=== PATIENT | male | born 1955 | race Caucasian/White ===

== ENCOUNTER → 2018-05-01 07:54 | Outpatient (CLI) | payer OTHER, SELFPAY ==
--- NOTE | 2018-05-01 09:25 | PM.TREADMILL ---
Cardiac Stress Test Report Referral & Results Date Patient Seen: 05/01/18 Requesting provider: Reynaldo Spence Indication: Short of breath, hypertension, dizziness Rest ECG: Unremarkable Procedure Note: Today following both written and verbal informed consent, the patient was exercised according to a standard [place] protocol. The patient exercised for a total of 6 min 25 sec achieving a maximum heart rate of 165. Patient's maximum systolic blood pressure was 186. This was an estimated 7.0 MET's. There are no ST-T segment changes identified Patient frequent PVCs including runs of ventricular bigeminy Rare PACs More frequent apparently conducted sinus beats were also present Functional aerobic impairment rated 20% on the sedentary scale Normal heart rate and blood pressure response Impression: No evidence of ischemia Dysrhythmia as above, suggest echocardiography given the ventricular dysrhythmia component Limited exercise capacity as above Please note: Actual ECG tracings can be found in the PACS system.
== END ==
PROVIDERS: Visit Provider Family Medicine
DX: I49.3 Ventricular premature depolarization (principal); I25.10 Atherosclerotic heart disease of native coronary artery without angina pectoris; R06.02 Shortness of breath; R42 Dizziness and giddiness
CPT/HCPCS: 93016; 93017; 93018

== ENCOUNTER 2022-04-20 17:03 | Emergency (ER) | payer OTHER, SELFPAY ==
[2022-04-20 17:30] VITALS: BP 162/93; PULSE 76; RESP 16; TEMP 36.7; O2SAT 99; BMI 44.0
--- NOTE | 2022-04-20 22:42 | ED.SKABFB ---
HPI - Skin/Abscess/Foreign Bdy General Chief complaint: Skin/Abscess/Foreign Body Stated complaint: Poss spider bite, Rt calf Time Seen by Provider: 04/20/22 22:37 Source: patient Mode of arrival: Ambulatory Limitations: no limitations History of Present Illness HPI narrative: Alert phi 66-year-old male history of hypertension pulmonary embolism on Eliquis presenting today with right leg pain and redness. He says he was driving along with he felt something on his leg he thought it was staying but never saw above what it is like a couple of times. He has noted some increasing redness over the last 2 days. No fever or chills. No drainage. Related Data Home Medications Medication Instructions Recorded Confirmed hydrochlorothiazide 12.5 mg capsule ##0 03/07/12 metoprolol tartrate 25 mg tablet 25 mg PO BID ##0 03/07/12 ibuprofen 200 mg tablet ##0 08/16/12 potassium chloride 8 mEq ##0 08/16/12 tablet,extended release (Klor-Con) Previous Rx's Medication Instructions Recorded doxycycline hyclate 100 mg capsule 100 mg PO BID #14 caps 04/20/22 Allergies Allergy/AdvReac Type Severity Reaction Status Date / Time No Known Drug Allergies Allergy Verified 04/20/22 17:37 Review of Systems Review of Systems Narrative: GENERAL: Denies chills,fever HEENT: Denies throat pain RESPIRATORY: Denies dyspnea, cough, wheezing CARDIOVASCULAR: Denies chest pain, palpitations GASTROINTESTINAL: Denies nausea, vomiting MUSCULOSKELETAL: Denies extremity pain, injury SKIN: See HPI NEUROLOGIC: Denies weakness, dizziness, headache, numbness 8 point review of systems is negative except for those stated above and HPI Patient History Social History Smoking Status: Never smoker Smoking Status: Never smoker alcohol intake frequency: 0-2 drinks per day Substance Use Type: does not use Exam Initial Vital Signs Initial Vital Signs: Vital Signs Temperature 98.0 F 04/20/22 17:30 Pulse Rate 76 04/20/22 17:30 Respiratory Rate 16 04/20/22 17:30 Blood Pressure 162/93 H 04/20/22 17:30 Pulse Oximetry 99 04/20/22 17:30 Oxygen Delivery Method 04/20/22 17:30 GENERAL: Alert phi 66-year-old CARDIOVASCULAR: peripheral pulses in tact, cap refill <2 sec RESPIRATORY: No respiratory distress, speaks in full sentences without difficulty EXTREMITIES: Normal range of motion, no clubbing or edema. Neurovascularly intact NEUROLOGICAL: Cranial nerves II through XII grossly intact. Normal gait and speech. SKIN: Right leg calf 5 cm of erythema 3 small holes. No fluctuation no swelling no significant induration minimally tender to touch. Left lower extremity not erythematous but chronic venous stasis noted per orally Course Orders Ordered: Discontinued Medications Doxycycline Hyclate (Doxycycline Hyclate 100 Mg Tablet) 100 mg PO NOW ONE Stop: 04/20/22 22:42 Last Admin: 04/20/22 22:54 Dose: 100 mg Documented By: CTS Vital Signs Vital signs: Vital Signs - 8 hr 04/20/22 17:30 Temperature 98.0 F Pulse Rate 76 Respiratory Rate 16 Blood Pressure 162/93 H Pulse Oximetry 99 Oxygen Delivery Method Room Air MDM - Skin/Abscess/Foreign Bdy MDM Narrative Medical decision making narrative: Patient overall appears well. Not septic. Small area of cellulitis. Unclear if a spider actually bit him do not suspect IVDA use or injection. Will start on doxycycline Discharge Plan Departure Patient Disposition: Home Clinical Impression: Cellulitis Instructions: DI for Cellulitis -- Adult Activity Restrictions/Additional Instructions: *You have been diagnosed with cellulitis *What to do: Please monitor closely for worsening redness. Give antibiotics at least 2 to3 days to work *Continue to take medications as directed Doxycycline 100 mg twice a day for 7 days *Follow up with your primary care provider in 2-3 days or call [phone] *Return to ER if you should have increasing redness pain swelling fever or any new, worsening or concerning symptoms Prescriptions: New doxycycline hyclate 100 mg capsule 100 mg PO BID Qty: 14 0RF No Action hydrochlorothiazide 12.5 MG capsule Qty: 0 metoprolol tartrate 25 MG tablet 25 mg PO BID Qty: 0 potassium chloride [Klor-Con 8] 8 MEQ tablet extended release Qty: 0 ibuprofen 200 MG tablet Qty: 0 Visit Report Forms: Patient Portal/API
[2022-04-20] MEDS: DOXYCYCLINE HYCLATE 100 MG TABLET PO (22:54)
== END 2022-04-20 22:54 | disposition home or self-care (01) ==
PROVIDERS: Emergency Provider Emergency Medicine
DX: L03.115 Cellulitis of right lower limb (principal)
CPT/HCPCS: 99283

== ENCOUNTER 2022-10-17 12:39 | Day surgery (SDC) | payer OTHER, SELFPAY ==
[2022-10-17] MEDS: LACTATED RINGERS 1,000 ML 100 ML IV (13:45)
[2022-10-17 13:49] VITALS: BP 153/75; PULSE 73; RESP 16; TEMP 37.1; O2SAT 95; BMI 43.4
--- NOTE | 2022-10-17 14:03 | PM.HP.1 ---
History of Present Illness History of Present Illness Date Patient Seen: 10/17/22 Time Patient Seen: 14:04 Chief complaint: SDC Narrative: Demario is a 66-year-old man who has never had a colonoscopy. No family history of colon cancer that he knows of. [facility] Social History household members: spouse Smoking Status: Never smoker Meds Home Medications and Allergies Home Medications Medication Instructions Recorded Confirmed Type hydrochlorothiazide 12.5 mg capsule 12.5 mg PO DAILY ##0 03/07/12 10/17/22 History metoprolol tartrate 25 mg tablet 25 mg PO BID ##0 03/07/12 History ibuprofen 200 mg tablet ##0 08/16/12 History potassium chloride 8 mEq ##0 08/16/12 History tablet,extended release (Klor-Con) doxycycline hyclate 100 mg capsule 100 mg PO BID #14 caps 04/20/22 10/17/22 Rx losartan 100 mg tablet 100 mg PO DAILY 10/17/22 10/17/22 History Allergies Allergy/AdvReac Type Severity Reaction Status Date / Time No Known Drug Allergies Allergy Verified 10/17/22 13:31 Exam Vital Signs (past 8 hours): - 10/17/22 13:49 Temperature 98.7 F Pulse Rate 73 Respiratory Rate 16 Blood Pressure 153/75 H Pulse Oximetry 95 Oxygen Delivery Method Blow By Oxygen Delivery Method Blow By Const Nutritional Appearance: obese Assessment & Plan Assessment and plan (1) Colon cancer screening: Status: Acute Plan We reviewed the risks and benefits of colonoscopy for colon cancer screening and he would like to proceed.
--- NOTE | 2022-10-17 15:51 | PM.OP.COLON ---
Operative Date/Time/Diagnoses Date of procedure: 10/17/22 Time of procedure: 15:51 Pre-op diagnosis: Colon cancer screening Post-op diagnosis: same Procedure & Clinicians Study performed: Colonoscopy Same procedure as scheduled: Yes Surgeon: Keshawn Donald Procedure Notes Procedure in detail: Surgeon: Keshawn Donald MD Anesthesia: Maxim Howard CRNA Procedure: The patient was brought to the endoscopy suite, placed in left lateral decubitus position. The patient was connected to monitoring devices. A time-out was performed. Sedation was administered. Once the patient was adequately sedated, a digital rectal exam was performed and was normal. The scope was then inserted and advanced to the ascending colon. The cecum could not be reached. We tried repositioning the patient's supine, the scope stiffener and abdominal compression however no combination maneuvers would allow to enter the cecum. Scope was slowly withdrawn and no mucosal abnormalities were seen. The scope was retroflexed in the rectum. No abnormalities were seen. The scope was straightened and removed. The patient was awakened and brought to recovery. Scope withdrawal time: Not applicable Sedation time: 31 minutes EBL: 0 Findings: Long colon Post-procedure Disposition: PACU
[2022-10-17 15:56] VITALS: BP 130/78; PULSE 70; RESP 16; TEMP 36.7; O2SAT 95
[2022-10-17 16:01] VITALS: BP 114/70; PULSE 70; RESP 16; O2SAT 95
[2022-10-17 16:06] VITALS: BP 118/72; PULSE 92; RESP 16; O2SAT 96
[2022-10-17 16:11] VITALS: BP 120/82; PULSE 67; RESP 18; O2SAT 96
[2022-10-17 16:13] VITALS: BP 142/88; PULSE 62; RESP 16; O2SAT 96
== END 2022-10-17 16:47 | disposition home or self-care (01) ==
PROVIDERS: PCP Nurse Practitioner Family; Referring Provider Surgery; Visit Provider Surgery
PROC: 0DJD8ZZ Inspection of Lower Intestinal Tract, Via Natural or Artificial Opening Endoscopic (ICD-10-PCS; CPT 45378; principal; 2022-10-17 14:00)
DX: Z12.11 Encounter for screening for malignant neoplasm of colon (principal)
CPT/HCPCS: 45378; J2704

== ENCOUNTER → 2022-12-20 08:12 | Outpatient (CLI) | payer OTHER, SELFPAY ==
--- NOTE | 2022-12-20 08:13 | DI.RAD.S_ITS ---
PROCEDURE: FL BARIUM ENEMA INDICATIONS: incomplete colonoscopy COMPARISON: None. FINDINGS: KUB: Preprocedural environmental compliance inspector film demonstrates a normal bowel gas pattern. No suspicious abdominal calcifications. Visualized solid organ contours appear normal in size. No suspicious bony lesions. Postsurgical changes are seen in right femoral neck. Colon: Mildly redundant sigmoid colon is seen. There is adequate opacification of the entire colon. No strictures or extrinsic mass effects are identified. No colonic fistulae or perforations. Colon caliber appears normal. IMPRESSION: Mildly redundant sigmoid colon. Otherwise unremarkable double-contrast barium enema study. Dictated by: Vahid Ogden M.D. on 12/20/2022 at 15:25 Approved by: Vahid Ogden M.D. on 12/20/2022 at 15:26
== END ==
PROVIDERS: PCP Nurse Practitioner Family; Referring Provider Surgery; Visit Provider Surgery
DX: Z12.11 Encounter for screening for malignant neoplasm of colon (principal); Q43.8 Other specified congenital malformations of intestine
CPT/HCPCS: 74270

== ENCOUNTER → 2023-01-14 14:08 | Outpatient (CLI) | payer OTHER, SELFPAY ==
--- NOTE | 2023-01-22 20:33 | DI.NM.S_ITS ---
DATE OF SERVICE: 01/14/2023 PROCEDURE: Pharmacological perfusion study report. Date of resting study done on January 14, 2023 and stress part done on January 22, 2023. RADIOPHARMACEUTICAL: 25.1 millicurie technetium-99m Myoview IV was injected at stress and 25.6 millicurie technetium-99m Myoview IV was injected at rest. Two days protocol. CARDIAC STRESS: Patient underwent IV Lexiscan perfusion study under the supervision of an attending staff. The patient received IV Lexiscan, as per standard protocol. The patient remained hemodynamically stable. Resting blood pressure 140/98. Resting rhythm sinus. During stress, no convincing ischemic changes seen. No new significant arrhythmias seen. No anginal symptoms. RAW DATA: There is increased subdiaphragmatic activity. Soft shadow seen around the heart. The patient's weight is 312 pounds. GATED STUDY: Stress LV ejection fraction 68% without any obvious wall motion abnormalities. Resting end-diastolic volume 105 mL. TID ratio 1.33. However, it is a pharmacological perfusion study. Visually, I do not see any significant transient ischemic dilatation. Lung/heart ratio 0.41, which is within normal limits. MYOCARDIAL PERFUSION SCAN: Stress supine, resting supine and stress prone images were compared to each other. There is a small to moderate size, moderate to severely decreased perfusion of inferior wall rakel patchy distribution, without any significant reversibility. There is also a predominantly fixed, small size, mildly decreased perfusion of mid anterior wall sparing distal anterior wall and anteroapex. Overall, no obvious reversible ischemia. CONCLUSION: There is a predominantly fixed, moderate-size patchy inferior wall defect, as well as a small size mid anterior wall defect without any significant reversible ischemia. The patient's weight is 312 pounds. There is increased subdiaphragmatic activity, as well as soft shadow seen around the heart. On gated study, preserved left ventricular function without any significant wall motion abnormalities. Abnormal perfusion defect could be due to persistent tissue attenuation artifact because of the body habitus, as described, however, one cannot rule out old inferior wall myocardial infarction and mid anterior wall myocardial infarction. Correlate clinically. In view of preserved left ventricular function without any significant reversible ischemia, overall, it is not a high risk study. Demario Shelton - JUAREZ/jami/aiden doc#: [id number]/job#: [id number] dd: 01/22/2023 16:34:00 dt: 01/22/2023 20:17:00 DICTATING MD/COPIES TO: Juancarlos Robison MD COPIES MNE: BRIANA;
== END ==
PROVIDERS: PCP Nurse Practitioner Family; Referring Provider Nurse Practitioner Family; Visit Provider Nurse Practitioner Family
DX: R06.02 Shortness of breath (principal); Z82.49 Family history of ischemic heart disease and other diseases of the circulatory system
CPT/HCPCS: 78452; 93017; A9502; J2785

== ENCOUNTER 2023-02-04 09:36 | Day surgery (SDC) | payer OTHER, SELFPAY ==
[2022-12-24 08:48] VITALS: BMI 44.4
[2023-02-04] MEDS: LACTATED RINGERS 1,000 ML 42 ML IV (09:47)
[2023-02-04 10:00] VITALS: BP 142/88; PULSE 56; RESP 16; TEMP 36.3; O2SAT 100; BMI 44.4
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
[2023-02-04] MEDS: CEFAZOLIN 2 GM/100 ML PREMIX 100 ML IV (10:33)
--- NOTE | 2023-02-04 10:44 | SUR.OPER ---
Supine on padded OR bed, head on pillow, arms secured on padded arm boards at <90 degrees abduction, legs uncrossed, safety belt at thigh, tape over blanket over lower legs.
[2023-02-04] MEDS: BUPIVACAINE 0.5% (PF) 30 ML, EPINEPHrine 0.15 MG INJ (10:48)
[2023-02-04] MEDS: CEFAZOLIN VIAL 1 GM in SODIUM CHLORIDE 0.9% 100 ML IV (10:50)
--- NOTE | 2023-02-04 12:02 | PM.OP.1 ---
Operative Date/Time/Diagnoses Date of procedure: 02/04/23 Time of procedure: 12:02 Pre-op diagnosis: Right inguinal hernia Post-op diagnosis: same Procedure & Clinicians Procedure: Open right inguinal hernia repair with mesh Same procedure as scheduled: Yes Surgeon: Keshawn Donald Patent Attorney: Murray Santana Anesthesia Type: General Operative Notes Procedure in detail: Preoperative antibiotic was administered. The patient was brought to the operating room and placed on the table in supine position general anesthesia was induced. The right groin was prepped and draped in the normal fashion and a time-out was performed. Roughly 10 mL of local anesthetic were injected into the skin and subcutaneous adipose tissue over the right groin. A 9 cm incision was made over the right inguinal canal. Dissection was carried down through the subcutaneous adipose tissue. The patient had extensive subcutaneous adipose tissue. We exposed the external oblique aponeurosis in the direction of the fibers. Additional local was injected deep to the aponeurosis. A 15 blade scalpel was used to bridget the external oblique aponeurosis. Metzenbaum scissors were used to carefully open the aponeurosis in the direction of the fibers taking care not to injure the underlying ilioinguinal nerve. We completely exposed the inguinal canal. The cord was dissected free from the inguinal ligament and floor of the inguinal canal and the external oblique aponeurosis was dissected off of the internal oblique taking care not to injure the hypogastric nerve. We encircled the cord with a Fredy drain for retraction. There was a fatty indirect hernia. We amputated and discarded a fatty cord lipoma there were to be able to reduce the remaining fatty tissue below the internal ring. We then placed a polypropylene mesh against the floor of the inguinal canal. The mesh was secured with multiple interrupted 3-0 Prolene sutures to the pubic tubercle and shelving edge of the inguinal ligament as well as to the conjoint tendon medially. We overlapped the tails to recreate an internal ring and secured the medial tail to the inguinal ligament with additional sutures. We injected some more local into the fatty tissue in the inguinal canal and cord. Finally, we removed the Fredy drain and closed the external oblique fascia with a running 3-0 Vicryl suture. Skin was closed with interrupted 3-0 Vicryl dermal sutures and a running 4 Monocryl subcuticular stitch. EBL 15 mL The patient was awakened and brought to recovery room. Murray PARKER provided assistance with exposure, retraction and closure of incisions. Post-operative Condition: stable Disposition: PACU
[2023-02-04 12:10] VITALS: BP 131/82; PULSE 74; RESP 14; TEMP 36.9; O2SAT 94
[2023-02-04 12:13] VITALS: BP 127/87; PULSE 69; RESP 15; TEMP 36.9; O2SAT 94
[2023-02-04 12:21] VITALS: BP 126/85; PULSE 75; RESP 12; TEMP 36.9; O2SAT 95
[2023-02-04] MEDS: ONDANSETRON 4 MG/2 ML INJ IV (12:25)
[2023-02-04] MEDS: OXYCODONE/ACETAMINOPHEN 5/325 TABLET 1 TAB PO ×2 (12:25→13:01)
[2023-02-04 12:29] VITALS: BP 134/87; PULSE 69; RESP 17; TEMP 36.9; O2SAT 95
[2023-02-04 13:15] VITALS: BP 132/86; PULSE 69; RESP 16; TEMP 36.9; O2SAT 95
== END 2023-02-04 13:19 | disposition home or self-care (01) ==
PROVIDERS: PCP Nurse Practitioner Family; Referring Provider Surgery; Visit Provider Surgery
PROC: (CPT 49505; principal; 2023-02-04 10:45)
DX: K40.90 Unilateral inguinal hernia, without obstruction or gangrene, not specified as recurrent (principal); D17.6 Benign lipomatous neoplasm of spermatic cord
CPT/HCPCS: 49505; 82962; J0171; J0330; J0690; J1100; J2405; J2704; J3010

== ENCOUNTER 2023-12-29 18:38 | Emergency (ER) | payer OTHER, SELFPAY ==
[2023-12-29 18:46] VITALS: BP 153/92; PULSE 62; RESP 18; TEMP 36.2; O2SAT 99; BMI 39.3
[2023-12-29 20:28] LABS: COVID19 -Nasal RAPID Negative (Negative)
--- NOTE | 2023-12-29 21:43 | PC.NURSE ---
Pt states to this RN when coming back to a room that he would like to wait as he feels that there are others in the lobby that are sicker than him and in pain. This RN explains to pt that it is his turn to see the MD. Pt verbalizes understanding but restates that he is okay to wait. Pt sent back to lobby to wait. Pt ambulatory, no distress noted.
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
[2023-12-29 23:55] VITALS: BP 133/85; PULSE 79; RESP 16; O2SAT 98
== END 2023-12-29 23:56 | disposition home or self-care (01) ==
PROVIDERS: Emergency Provider Emergency Medicine; PCP Nurse Practitioner Family
DX: J01.90 Acute sinusitis, unspecified (principal); Z79.01 Long term (current) use of anticoagulants; Z11.52 Encounter for screening for COVID-19
CPT/HCPCS: 87635; 99281; 99282